=== PATIENT | female | born 1980 | race Caucasian/White ===

== ENCOUNTER → 2017-06-23 | Outpatient (CLI) | payer OTHER ==
[2017-06-23 08:06] LABS: BASOPHILS # (AUTO) 0.06 x10^3/uL (0-0.1); BASOPHILS % (AUTO) 1 % (0-1); EOSINOPHILS % (AUTO) 2 % (1-7); LYMPHOCYTES % (AUTO) 44 % (22-44); MD NO; MEAN CORPUSCULAR HEMOGLOBIN 29.4 pg (27.0-34.8); MEAN CORPUSCULAR HGB CONC 33.4 g/dL (32.4-35.8); MEAN CORPUSCULAR VOLUME 88.1 fL (80-100); MEAN PLATELET VOLUME 7.9 fL (7.4-10.4); MONOCYTES # (AUTO) 0.36 x10^3/uL (0.2-0.8); MONOCYTES % (AUTO) 7 % (2-9); NEUTROPHILS # (AUTO) 2.49 x10^3/uL (1.8-6.8); NEUTROPHILS % (AUTO) 46 % (42-75); PLATELET COUNT 329 x10^3/uL (130-400); RED CELL DISTRIBUTION WIDTH 13.1 % (9.6-15.2)
[2017-06-23 08:19] LABS: ALBUMIN 3.8 g/dL (3.4-5.0); ANION GAP 5 mmol/L (5-15); CALCIUM 8.1 mg/dL (8.5-10.1); CHLORIDE 108 mmol/L (98-107); CHOLESTEROL, TOTAL 150 mg/dL (140-239); TRIGLYCERIDES 59 mg/dL (50-200); VLDL CHOLESTEROL 12 mg/dL (0-25)
[2017-06-23 08:26] LABS: HEMOGLOBIN A1C 5.6 % (4.2-6.3)
[2017-06-23 08:46] LABS: % IRON SATURATION 17 % (20-55); ALANINE AMINOTRANSFERASE 24 U/L (12-78); ALKALINE PHOSPHATASE 78 U/L (45-117); BILIRUBIN,TOTAL 0.3 mg/dL (0.2-1.0); CREATININE 0.76 mg/dL (0.55-1.02); FOLATE LEVEL 13.9 ng/mL (3.1-17.5); HDL CHOL % 49 % (28-40); HDL CHOLESTEROL (DIRECT) 74 mg/dL (40-60); IRON LEVEL 60 mcg/dL (50-170); LDL CHOLESTEROL,CALCULATED 64 mg/dL (54-169); LDL/HDL RATIO 0.9 (0.5-3.0); TOTAL IRON BINDING CAPACITY 355 mcg/dL (250-450); TOTAL PROTEIN 7.1 g/dL (6.4-8.2); TRANSFERRIN 300 mg/dL (200-360)
== END ==
LOC: LAB 07:47
PROVIDERS: ATTEND Nurse Practitioner Primary Care
DX: Z00.01 Encounter for general adult medical examination with abnormal findings (principal); Z12.4 Encounter for screening for malignant neoplasm of cervix; Z12.39 Encounter for other screening for malignant neoplasm of breast; Z12.11 Encounter for screening for malignant neoplasm of colon; Z13.220 Encounter for screening for lipoid disorders; J45.909 Unspecified asthma, uncomplicated; R53.83 Other fatigue
CPT/HCPCS: 36415; 80053; 80061; 82306; 82607; 82728; 82746; 83036; 83540; 83550; 83735; 84207; 84425; 84443; 84466; 85025

== ENCOUNTER 2018-08-30 09:19 | Emergency (ER) | payer OTHER ==
[~2018-08-30] VITALS: Ht 157.5 cm; Wt 60.3 kg
--- NOTE | 2018-08-30 09:47 | NUR ---
FIRST CONTACT WITH PT. BISI at bedside. LIDA. No obvious defecits observed. Call light within reach. NIBP and continous pulse ox on. Pt c/o RLQ pain starting at 1500 yesterday 08/29/18. Pt states, "I took ibuprofen yesterday. I went to my lubricator granulator, and they sent me here. My periods are like clock work, and this pain is more severe that what I normally experiences. My last cycle was 08/16/18."
[2018-08-30] MEDS ORDERED: SODIUM CHLORIDE FLUSH 10ML SYR IVF ONE (10:00)
[2018-08-30] MEDS ORDERED: ONDANSETRON 2MG/ML, 2ML IVPush ONE (10:00)
[2018-08-30] MEDS ORDERED: HYDROmorphone 2 MG/ML, 1ML IVPush PRN (10:00)
--- NOTE | 2018-08-30 10:01 | NUR ---
Pt ambulated with steady gait and balance to restroom. UA sent to lab. Lab at bedside collecting blood. Ultrasound at bedside. Pt transported to ultrasound on [facility]. NADN. All safety measures in place.
[2018-08-30 10:23] LABS: BASOPHILS # (AUTO) 0.03 x10^3/uL (0-0.1); BASOPHILS % (AUTO) 0 % (0-1); EOSINOPHILS % (AUTO) 0 % (1-7); LYMPHOCYTES # (AUTO) 1.76 x10^3/uL (1-3.4); LYMPHOCYTES % (AUTO) 18 % (22-44); MD NO; MEAN CORPUSCULAR HEMOGLOBIN 29.8 pg (27.0-34.8); MEAN CORPUSCULAR HGB CONC 33.5 g/dL (32.4-35.8); MEAN CORPUSCULAR VOLUME 88.8 fL (80-100); MEAN PLATELET VOLUME 8.4 fL (7.4-10.4); MONOCYTES # (AUTO) 0.39 x10^3/uL (0.2-0.8); MONOCYTES % (AUTO) 4 % (2-9); NEUTROPHILS # (AUTO) 7.69 x10^3/uL (1.8-6.8); NEUTROPHILS % (AUTO) 78 % (42-75); PLATELET COUNT 324 x10^3/uL (130-400); RED BLOOD COUNT 4.61 x10^6/uL (3.82-5.3); RED CELL DISTRIBUTION WIDTH 13.6 % (9.6-15.2)
[2018-08-30 10:27] LABS: MICROSCOPIC NOT IND
[2018-08-30 10:30] LABS: CHLORIDE 107 mmol/L (98-107)
[2018-08-30 10:30] LABS: CULTURE INDICATED? NO
[2018-08-30 10:39] LABS: ALANINE AMINOTRANSFERASE 26 U/L (12-78); ALBUMIN 4.4 g/dL (3.4-5.0); ALKALINE PHOSPHATASE 66 U/L (45-117); ANION GAP 6 mmol/L (5-15); BILIRUBIN,TOTAL 0.6 mg/dL (0.2-1.0); CREATININE 0.89 mg/dL (0.55-1.02); TOTAL PROTEIN 7.8 g/dL (6.4-8.2)
[2018-08-30] MEDS ORDERED: ONDANSETRON 2MG/ML, 2ML ONE (10:47)
[2018-08-30] MEDS ORDERED: HYDROmorphone 1 MG/ML, 1ML VIAL ONE (10:48)
--- NOTE | 2018-08-30 10:52 | NUR ---
assumed care of pt for pain medications. iv started. pt refused dilaudid. md at bedside. toradol ordered instead of dilaudid.
[2018-08-30] MEDS ORDERED: KETOROLAC 30 MG/1 ML ONE (10:54)
[2018-08-30] MEDS ORDERED: KETOROLAC 30 MG/1 ML IVPush ONE (11:00)
[2018-08-30 11:10] VITALS: BP 108/63
--- NOTE | 2018-08-30 11:10 | NUR ---
Patient given discharge instructions and they have confirmed that they understand the instructions. Patient ambulatory with steady gait.
== END 2018-08-30 11:12 | disposition home or self-care (01) ==
LOC: ED 10:30
DX: N83.02 Follicular cyst of left ovary (principal); N83.01 Follicular cyst of right ovary
CPT/HCPCS: 36415; 76830; 80053; 81003; 83690; 84703; 85025; 96374; 96375; 99284; J1885; J2405

== ENCOUNTER 2018-11-09 12:28 | Emergency (ER) | payer OTHER ==
[~2018-11-09] VITALS: Ht 157.5 cm; Wt 60.3 kg
[2018-11-09 12:29] VITALS: BP 114/72
[2018-11-09] MEDS ORDERED: ALBUTEROL/IPRATROPIUM 2.5MG/0.5MG, 3 ML ONE (13:29)
[2018-11-09] MEDS ORDERED: ALBUTEROL/IPRATROPIUM 2.5MG/0.5MG, 3 ML NPPB ONE (13:30)
[2018-11-09] MEDS ORDERED: DEXAMETHASONE 4 MG TABLET PO ONE (13:30)
[2018-11-09] MEDS ORDERED: DEXAMETHASONE 4 MG TABLET ONE (13:56)
== END 2018-11-09 14:16 | disposition home or self-care (01) ==
LOC: ED 14:04
DX: R05 Cough (principal); R09.89 Other specified symptoms and signs involving the circulatory and respiratory systems; J45.909 Unspecified asthma, uncomplicated
CPT/HCPCS: 70360; 71046; 94640; 99283

== ENCOUNTER 2020-05-07 13:30 | Emergency (ER) | payer OTHER ==
[~2020-05-07] VITALS: Ht 157.5 cm; Wt 53.4 kg
[2020-05-07] MEDS ORDERED: ONDANSETRON 2MG/ML, 2ML ONE (14:16)
[2020-05-07] MEDS ORDERED: FAMOTIDINE 20 MG/2 ML ONE (14:16)
--- NOTE | 2020-05-07 14:26 | NUR ---
C/O N/V/D SINCE LAST NIGHT, DENIES ANY SICK CONTACTS.
[2020-05-07] MEDS ORDERED: SODIUM CHLORIDE 0.9% 1,000ML IVBOLUS ONE (14:30)
[2020-05-07] MEDS ORDERED: FAMOTIDINE 20 MG/2 ML IV ONE (14:30)
[2020-05-07] MEDS ORDERED: ONDANSETRON 2MG/ML, 2ML IVPush ONE (14:30)
[2020-05-07 14:31] LABS: BASOPHILS % (AUTO) 0 % (0-1); EOSINOPHILS % (AUTO) 0 % (1-7); LYMPHOCYTES % (AUTO) 11 % (22-44); MEAN CORPUSCULAR HEMOGLOBIN 30.5 pg (27.0-34.8); MEAN CORPUSCULAR HGB CONC 33.3 g/dL (32.4-35.8); MEAN PLATELET VOLUME 8.2 fL (7.4-10.4); MONOCYTES % (AUTO) 2 % (2-9); NEUTROPHILS % (AUTO) 87 % (42-75); PLATELET COUNT 274 x10^3/uL (130-400); RED BLOOD COUNT 4.24 x10^6/uL (3.82-5.3)
[2020-05-07 14:38] LABS: ALANINE AMINOTRANSFERASE 23 U/L (12-78); ALBUMIN 3.9 g/dL (3.4-5.0); ANION GAP 9 mmol/L (5-15); CALCIUM 8.9 mg/dL (8.5-10.1); CHLORIDE 111 mmol/L (98-107)
[2020-05-07] MEDS ORDERED: ALBU18HF INH (14:42)
[2020-05-07 14:43] LABS: ALKALINE PHOSPHATASE 47 U/L (45-117); BILIRUBIN,TOTAL 0.6 mg/dL (0.2-1.0); CREATININE 0.83 mg/dL (0.55-1.02); TOTAL PROTEIN 6.8 g/dL (6.4-8.2)
--- NOTE | 2020-05-07 14:44 | NUR ---
ORDERED BOLUS INFUSING. ORDERED MEDS ADMINISTERED. SIGNIFICANT OTHER AT BEDSIDE.
[2020-05-07 15:36] LABS: MICROSCOPIC INDICATED
[2020-05-07 15:38] VITALS: BP 109/65
--- NOTE | 2020-05-07 15:38 | NUR ---
PT RESTING ON GURNEY. STATES CONTINUED NAUSEA. VSS. WILL CONTINUE TO MONITOR
[2020-05-07] MEDS ORDERED: METOCLOPRAMIDE 5 MG/ML, 2ML ONE (15:46)
[2020-05-07] MEDS ORDERED: METOCLOPRAMIDE 5 MG/ML, 2ML IVPush ONE (16:00)
[2020-05-07 16:05] LABS: MD SCAN
--- NOTE | 2020-05-07 16:09 | NUR ---
PT AMBULATED TO DISCHARGE WITH STEADY GAIT. STATES NAUSEA UNDER CONTROL FOLLOWING ORDERED MEDICATION ADMINISTRATION. PT ENCOURAGED TO FOLLOW-UP DISCUSSED. PT EDUCATED TO RETURN TO THE ED WITH WORSENING SYMPTOMS. RX GIVEN TO PT. PT VERALIZED UNDERSTANDING.
== END 2020-05-07 16:14 | disposition home or self-care (01) ==
LOC: ED 15:30
DX: A08.4 Viral intestinal infection, unspecified (principal); R11.2 Nausea with vomiting, unspecified
CPT/HCPCS: 36415; 80053; 81001; 83690; 84703; 85025; 87086; 96361; 96374; 96375; 99284; J2405; J2765; J7030

== ENCOUNTER → 2020-11-14 | Outpatient (CLI) | payer OTHER ==
[~2020-11-14] MED LIST: ALBU18HF INH
== END | disposition home or self-care (01) ==
LOC: CFH 08:33
PROVIDERS: ATTEND Internal Medicine
DX: Z12.31 Encounter for screening mammogram for malignant neoplasm of breast (principal); N64.89 Other specified disorders of breast
CPT/HCPCS: 77063; 77067